=== PATIENT | female | born 1960 | race Caucasian/White ===

== ENCOUNTER 2017-07-15 16:20 | Emergency (ER) | payer BC, OTHER ==
[2017-07-15 16:34] VITALS: BP 154/99
--- NOTE | 2017-07-15 16:38 | UC ---
Respiratory Complaint HPI - HPI Summary HPI Summary: 56 YEAR OLD FEMALE PRESENTS WITH SEVERE SHORTNESS OF BREATH AND WHEEZING. - History of Current Complaint Chief Complaint: UCRespiratory Stated Complaint: CHEST CONGESTION/COUGH Time Seen by Provider: 07/15/17 16:36 Hx Obtained From: Patient Hx Last Menstrual Period: "Years ago." Onset/Duration: Sudden Onset Severity Initially: Moderate Severity Currently: Moderate - Allergies/Home Medications Allergies/Adverse Reactions: Allergies Allergy/AdvReac Type Severity Reaction Status Date / Time Meperidine [From Demerol HCl] Allergy Intermediate Hives Verified 07/15/17 16:34 Bee Venom Allergy Anaphylatic Verified 07/15/17 16:34 Shock spider bites Allergy Anaphylatic Uncoded 07/15/17 16:34 Shock PMH/Surg Hx/FS Hx/Imm Hx Previously Healthy: Yes Other History Of: Negative For: HIV, Hepatitis B, Hepatitis C - Surgical History Surgical History: Yes Surgery Procedure, Year, and Place: DISCKECTOMY L4-L5. TOTAL KNEE REPLACEMENT RIGHT 2011. ABLASION/REMOVAL OF ONE OVARY PRIOR TO hysterectomy 2009. T & A 1978 - Family History Known Family History: Positive: None, Cardiac Disease, Hypertension, Respiratory Disease - Social History Alcohol Use: Occasionally Substance Use Type: None Smoking Status (MU): Heavy Every Day Tobacco Smoker Type: Cigarettes Amount Used/How Often: 1/2 pack daily Length of Time of Smoking/Using Tobacco: 40+ yrs Have You Smoked in the Last Year: Yes Review of Systems Constitutional: Negative Skin: Negative Eyes: Negative ENT: Negative Respiratory: Shortness Of Breath Cardiovascular: Negative Gastrointestinal: Negative Genitourinary: Negative Motor: Negative Neurovascular: Negative Musculoskeletal: Negative Neurological: Negative Psychological: Negative All Other Systems Reviewed And Are Negative: Yes Physical Exam Triage Information Reviewed: Yes Appearance: Ill-Appearing Vital Signs: Initial Vital Signs Temp 36.3 C 07/15/17 16:31 Pulse 78 07/15/17 16:31 Resp 14 07/15/17 16:31 BP 154/99 07/15/17 16:31 Pulse Ox 99 07/15/17 16:31 Eye Exam: Normal ENT Exam: Normal Dental Exam: Normal Neck exam: Normal Neck: Positive: 1 Respiratory: Positive: Rhonchi, Wheezing Cardiovascular Exam: Normal Abdominal Exam: Normal Musculoskeletal Exam: Normal Neurological Exam: Normal Psychological Exam: Normal Skin Exam: Normal UC Diagnostic Evaluation - Laboratory O2 Sat by Pulse Oximetry: 99 Respiratory Course/Dx - Differential Dx/Diagnosis Provider Diagnoses: COUGH. WHEEZING Discharge - Discharge Plan Condition: Stable Disposition: HOME Patient Education Materials: Reactive Airways Disease (ED), Wheezing (ED) Referrals: Nadiya Marley NP [Primary Care Provider] - Additional Instructions: PATIENT SUGGESTED TO GO TO THE ER FOR SHORTNESS OF BREATH.
[2017-07-15] MEDS: methylPREDNISolone 125 MG* 2 ML VIAL IM ONE (16:44)
[2017-07-15] MEDS: Albuterol/Ipratropium NEB.SOL* Albuterol 2.5 MG/Ipratropium 0.5 MG 3 ML INH ONE (16:46)
== END 2017-07-15 17:13 | disposition home or self-care (01) ==
LOC: UCCORT 16:20
DX: R05 Cough (principal); R06.2 Wheezing; Z96.651 Presence of right artificial knee joint; Z88.5 Allergy status to narcotic agent; F17.210 Nicotine dependence, cigarettes, uncomplicated
CPT/HCPCS: 96372; 99212; A9270-GY; G0463; J2930

== ENCOUNTER 2019-04-24 11:17 | Emergency (ER) | payer BC, OTHER ==
[2019-04-24 11:48] VITALS: BP 136/77
--- NOTE | 2019-04-24 12:27 | ED ---
Neck Pain - HPI Summary HPI Summary: 58 yr old female with the complaint of right sided posterior neck pain. Onset on SaturdayApril 21. She was moving heavy things at work and overhead movements. She felt a pain in the right side of her neck. She has had intermittent ringing and buzz in right ear, and also feeling intermittently off balance, and vertigo sensation. She has a posterior headache as well. She denies change in speech, hearing, swallowing. Denies numbness. The patient is a smoker. She reports that when she turns her head she gets increased pain in the neck and crunch sound. - History of Current Complaint Chief Complaint: UCBackPain Stated Complaint: NECK INJURY 04/21 (W/C) Time Seen by Provider: 04/24/19 12:06 Hx Last Menstrual Period: "Years ago." Pain Intensity: 4 - Allergies/Home Medications Allergies/Adverse Reactions: Allergies Allergy/AdvReac Type Severity Reaction Status Date / Time bee venom protein (honey bee) Allergy Anaphylatic Verified 04/24/19 11:48 Shock meperidine Allergy Hives Verified 04/24/19 11:48 spider bites Allergy Anaphylatic Uncoded 07/15/17 16:34 Shock Home Medications: Home Medications Bisoprolol/Hydrochlorothiazide [Bisoprolol Fumarate/HCTAZ 10-6.25 mg-] 1 tab PO DAILY 04/24/19 [History Confirmed 04/24/19] PMH/Surg Hx/FS Hx/Imm Hx Endocrine/Hematology History: Denies: Hx Diabetes, Hx Thyroid Disease Cardiovascular History: Reports: Hx Hypertension Denies: Hx Congestive Heart Failure, Hx Deep Vein Thrombosis, Hx Myocardial Infarction, Hx Pacemaker/ICD Respiratory History: Reports: Hx Asthma Denies: Hx Chronic Obstructive Pulmonary Disease (COPD), Hx Lung Cancer, Hx Pneumonia, Hx Pulmonary Embolism GI History: Denies: Hx Gall Bladder Disease, Hx Gastrointestinal Bleed, Hx Ulcer, Hx Urosepsis History: Denies: Hx Kidney Stones, Hx Renal Disease Sensory History: Denies: Hx Hearing Aid Neurological History: Denies: Hx Dementia, Hx Migraine, Hx Seizures, Hx Transient Ischemic Attacks (TIA) Psychiatric History: Denies: Hx Anxiety, Hx Depression, Hx Panic Disorder, Hx Schizophrenia, Hx Bipolar Disorder - Surgical History Surgery Procedure, Year, and Place: DISCKECTOMY L4-L5. TOTAL KNEE REPLACEMENT RIGHT 2011. ABLASION/REMOVAL OF ONE OVARY PRIOR TO hysterectomy 2009. T & A 1978 Infectious Disease History: No Infectious Disease History: Denies: Hx Clostridium Difficile, Hx Hepatitis, Hx Human Immunodeficiency Virus (HIV), Hx of Known/Suspected MRSA, Hx Shingles, Hx Tuberculosis, Hx Known/ Suspected VRE, Hx Known/Suspected VRSA, History Other Infectious Disease, Traveled Outside the [place] in Last 30 Days - Family History Known Family History: Positive: None, Cardiac Disease, Hypertension, Respiratory Disease - Social History Occupation: Employed Full-time Alcohol Use: Rare Substance Use Type: Reports: None Smoking Status (MU): Heavy Every Day Tobacco Smoker Type: Cigarettes Amount Used/How Often: 1/2 pack daily Length of Time of Smoking/Using Tobacco: 40+ yrs Have You Smoked in the Last Year: Yes Review of Systems Constitutional: Negative Negative: Photophobia, Blurred Vision, Diplopia Musculoskeletal: Other - right side posterior neck pain Positive: Headache. Negative: Weakness, Paresthesia, Numbness, Slurred Speech All Other Systems Reviewed And Are Negative: Yes Physical Exam Triage Information Reviewed: Yes Vital Signs On Initial Exam: Initial Vitals Temp Pulse Resp BP Pulse Ox 97.7 F 69 18 136/77 98 04/24/19 11:40 04/24/19 11:40 04/24/19 11:40 04/24/19 11:40 04/24/19 11:40 Vital Signs Reviewed: Yes Appearance: Positive: Well-Appearing, No Pain Distress Skin: Positive: Warm, Skin Color Reflects Adequate Perfusion Head/Face: Positive: Normal Head/Face Inspection Eyes: Positive: EOMI, ARGELAI ENT: Positive: Normal ENT inspection, TMs normal Neck: Positive: Supple, Other: - no focal midline neck tenderness. ROM limited looking toward the right. Respiratory/Lung Sounds: Positive: Clear to Auscultation, Breath Sounds Present Cardiovascular: Positive: RRR. Negative: Murmur Abdomen Description: Negative: Distended Musculoskeletal: Positive: Strength/ROM Intact Neurological: Positive: Sensory/Motor Intact, Alert, Oriented to Person Place, Time, CN Intact II-III, Normal Gait, Speech Normal Diagnostics - Vital Signs Vital Signs Temp Pulse Resp BP Pulse Ox 04/24/19 11:40 97.7 F 69 18 136/77 98 - Laboratory Lab Statement: Any lab studies that have been ordered have been reviewed, and results considered in the medical decision making process. Neck Course/Dx - Course Course Of Treatment: 58 yr old female with neck pain and intermittent neurological symptoms. Recommend she go to Stroke center for work up, but she declines transfer by ambulance to stroke center. She is signing out AMA. - Diagnoses Provider Diagnoses: Neck pain, Vertigo, Headache, Ringing in right ear Discharge - Sign-Out/Discharge Documenting (check all that apply): Patient Departure All imaging exams completed and their final reports reviewed: No Studies - Discharge Plan Condition: Good Disposition: AGAINST MEDICAL ADVICE Referrals: VIRGIL Leo [Primary Care Provider] - - Billing Disposition and Condition Condition: GOOD Disposition: Against Medical Advice
== END 2019-04-24 12:30 | disposition left against medical advice (07) ==
LOC: UCCORT 11:17
DX: M54.2 Cervicalgia (principal); X50.0XXA Overexertion from strenuous movement or load, initial encounter; Y93.89 Activity, other specified; Y92.89 Other specified places as the place of occurrence of the external cause; R42 Dizziness and giddiness; R21 Rash and other nonspecific skin eruption; H93.11 Tinnitus, right ear; I10 Essential (primary) hypertension; F17.210 Nicotine dependence, cigarettes, uncomplicated
CPT/HCPCS: 99212; G0463